=== PATIENT | female | born 1945 | race Two or more races ===

== ENCOUNTER 2017-05-16 09:00 | Emergency (ER) | payer MEDICARE, MEDICAID ==
[~2017-05-16] VITALS: Ht 152.4 cm; Wt 50.8 kg
[~2017-05-16 09:00] MED LIST: ASPI81TA2 PO; CLOP75TA2 PO; METF500T4 PO; PIOG30TA2 PO; SIMV40TA5 PO; SITA50TA PO
[2017-05-16 09:09] VITALS: BP 134/73
[2017-05-16] MEDS ORDERED: ACETAMINOPHEN 325 MG TABLET ONE (09:23)
[2017-05-16] MEDS ORDERED: ACETAMINOPHEN 325 MG TABLET PO ONE (09:30)
== END 2017-05-16 10:29 | disposition home or self-care (01) ==
LOC: ER 09:04
DX: S93.601A Unspecified sprain of right foot, initial encounter (principal); E11.9 Type 2 diabetes mellitus without complications; I10 Essential (primary) hypertension; M81.0 Age-related osteoporosis without current pathological fracture; Z79.82 Long term (current) use of aspirin; Z88.0 Allergy status to penicillin; S93.401A Sprain of unspecified ligament of right ankle, initial encounter; X58.XXXA Exposure to other specified factors, initial encounter; Y92.89 Other specified places as the place of occurrence of the external cause; Y93.89 Activity, other specified; Y99.8 Other external cause status
CPT/HCPCS: 73610; 73630; 99284; A4606; Z7610

== ENCOUNTER 2017-10-17 22:42 | Inpatient (IN) | payer MEDICARE, MEDICAID ==
[~2017-10-17] VITALS: Ht 154.9 cm; Wt 72.6 kg
[~2017-10-17 22:42] MED LIST changes: +ASPI-1169 PO; -ASPI81TA2 PO; +CLOP75TA15 PO; -CLOP75TA2 PO; +PIOG30TA10 PO; -PIOG30TA2 PO
--- NOTE | 2017-10-17 22:45 | NUR ---
MS BLANDON NOTES NEW SALINE LOCK PLACE ON LEFT FOREARM #22.IVF STARTED. Addendum: 10/18/17 at 0255 by PEREZ POWELL RN ABOVE SALINE LOCK PLACE AT 0045 10/18/17
--- NOTE | 2017-10-17 22:55 | NUR ---
TO BED 2 A 72 YO FEMALE PATIENT BIBSELF C/O RT ARM CELLULITIS X2 DAYS". VSS. NAD NOTED. NONDIPAHORETIC. AMBULATORY. PLACED ON MONITOR. COMFORT MEASURES RENDERED.
[2017-10-17] MEDS ORDERED: VANCOMYCIN 1 GM in IV D5W 250 ML IV ONE (23:00)
--- NOTE | 2017-10-17 23:00 | NUR ---
MS RN NOTES STARTED ON 09/17 NS AT 75ML/HR RATE VIA IV PUMP THRU LEFT FOREARM.
--- NOTE | 2017-10-17 23:03 | NUR ---
Dr Epstein at bedside to evaluate patient.
[2017-10-17] MEDS ORDERED: VANCOMYCIN 1 GM VIAL ONE (23:04)
--- NOTE | 2017-10-17 23:10 | NUR ---
started a saline lock on the lac g18, blood drawn and sent to lab.
[2017-10-17] MEDS ORDERED: LISI-607 PO (23:34)
[2017-10-17] MEDS ORDERED: INSU300I SQ (23:34)
[2017-10-17] MEDS ORDERED: FURO20TA4 PO (23:34)
[2017-10-17] MEDS ORDERED: CLIN300C11 PO (23:34)
[2017-10-17] MEDS ORDERED: SULF1TAB48 PO (23:34)
[2017-10-17] MEDS ORDERED: ACAR50TA3 PO (23:34)
[2017-10-17 23:38] LABS: BASOPHILS % (AUTO) 0.2 % (0.0-2.0); EOSINOPHILS % (AUTO) 0.4 % (0.0-6.0); HEMATOCRIT 34 % (33-45); HEMOGLOBIN 11.9 g/dL (11.5-14.8); LYMPHOCYTES # (AUTO) 1.7 /CMM (0.8-4.8); LYMPHOCYTES % (AUTO) 21.1 % (20.0-44.0); MEAN CORPUSCULAR HEMOGLOBIN 31 PG (26.0-33.0); MEAN CORPUSCULAR HGB CONC 35 g/dl (31.0-36.0); MEAN CORPUSCULAR VOLUME 91 fL (82-100); MONOCYTES # (AUTO) 0.7 /CMM (0.1-1.30); MONOCYTES % (AUTO) 8.8 % (2.0-12.0); NEUTROPHILS # (AUTO) 5.7 /CMM (1.8-8.9); NEUTROPHILS % (AUTO) 69.5 % (43.0-81.0); PLATELET COUNT (AUTO) 226 /CMM (150-450); RDW COEFFICIENT OF VARIATION 12.4 (11.5-15.0); RED BLOOD CELL COUNT(AUTO) 3.78 MIL/uL (4.0-5.2); WHITE BLOOD COUNT (AUTO) 8.2 K/uL (4.3-11.0)
--- NOTE | 2017-10-17 23:41 | NUR ---
REPORT GIVEN TO PEREZ BLANDON FOR ADMISSION AND VICENTA.
[2017-10-17] MEDS ORDERED: IV 1/2NS 1000 ML 1,000 ML IV PRN ×2 (23:45→23:46)
[2017-10-17 23:48] LABS: CALCIUM, SERUM 9.9 mg/dL (8.5-10.1); CREATININE 0.7 mg/dL (0.6-1.3); POTASSIUM 3.7 mmol/L (3.5-5.1)
[2017-10-17 23:51] LABS: INR 0.91 (0.87-1.13)
--- NOTE | 2017-10-17 23:57 | NUR ---
TRANSFERRED PATIENT TO [facility] FLOOR, NO INCIDENT NOTED.
[2017-10-18 00:15] VITALS: BP 129/69
[2017-10-18] MEDS ORDERED: Z GUARD REMEDY 2 OZ OINT TP PRN ×2 (00:15)
[2017-10-18] MEDS ORDERED: MAGNESIUM HYDROXIDE 30 ML UDC PO PRN ×2 (00:15)
[2017-10-18] MEDS ORDERED: ZOLPIDEM TARTRATE 5 MG TABLET PO PRN ×2 (00:15)
[2017-10-18] MEDS ORDERED: HYDROCODONE/APAP 5/325MG 1 EACH TABLET PO PRN ×2 (00:15)
[2017-10-18] MEDS ORDERED: ACETAMINOPHEN 325 MG TABLET PO PRN ×2 (00:15)
[2017-10-18] MEDS ORDERED: ONDANSETRON HCL/PF 4 MG/2 ML VIAL IVP PRN ×2 (00:15)
[2017-10-18] MEDS ORDERED: MAG HYDROX/AL HYDROX/SIMETH 30 ML UDC PO PRN ×2 (00:15)
--- NOTE | 2017-10-18 00:15 | NUR ---
MS RN NOTES ADMITTED FROM ER PER WHEELCHAIR THIS 72.Y.O. FEMALE ACCOMPANIED BY DAUGHTER,ALERT,ORIENTED X4,SPEAK KOREAN,WITH LITTLE [place]UX[place]GISH.CHIEF COMPLAINTS OF REDNESS AND SWELLING OF RIGHT ARM X 2DAYS.PAIN BEARABLE AT THE MOMENT.SALINE LOCK LEFT AC INFILTRATED.WITH SLIGHT REDNESS ON SITE.WITH KNOWN HISTORY OF RIGHT BREAST CANCER,WITH MASTECTOMY.AMBULATE WITH STEADY GAIT.CALL LIGHT IN REACH,NEEDS ANTICIPATED.
--- NOTE | 2017-10-18 02:00 | NUR ---
MS RN NOTES RIGHT ARM ELEVATED ON 2 PILLOWS ORDERED
--- NOTE | 2017-10-18 06:45 | NUR ---
MS RN NOTES FAIRLY RESTED,IVF INFUSING,RIGHT ARM KEPT ELEVATED ON 2 PILLOWS.DENIES PAIN.CALL LIGHT IN REACH,NEEDS ANTICIPATED.WILL ENDORSE TO DAY NURSE FOR VICENTA.
[2017-10-18 08:00] VITALS: BP 119/61
[2017-10-18] MEDS: METFORMIN 500 MG TABLET PO SCH ×2 (08:32→17:32)
[2017-10-18] MEDS: ASPIRIN 81 MG TAB.CHEW PO SCH (08:33)
[2017-10-18] MEDS: CLOPIDOGREL BISULFATE 75 MG TABLET PO SCH (08:33)
[2017-10-18] MEDS: FUROSEMIDE 20 MG TABLET PO SCH (08:33)
[2017-10-18] MEDS: LISINOPRIL (5MG) 5 MG TABLET PO SCH (08:33)
[2017-10-18] MEDS ORDERED: LISINOPRIL (5MG) 5 MG TABLET PO SCH (09:00)
[2017-10-18] MEDS ORDERED: METFORMIN 500 MG TABLET PO SCH (09:00)
[2017-10-18] MEDS ORDERED: CLOPIDOGREL BISULFATE 75 MG TABLET PO SCH (09:00)
[2017-10-18] MEDS ORDERED: ACARBOSE 50 MG TABLET PO SCH (09:00)
[2017-10-18] MEDS: INSULIN GLARGINE, 100 UNIT/ML CARTRIDGE SQ SCH (09:00)
[2017-10-18] MEDS ORDERED: ASPIRIN 81 MG TAB.CHEW PO SCH (09:00)
[2017-10-18] MEDS ORDERED: FUROSEMIDE 20 MG TABLET PO SCH (09:00)
[2017-10-18] MEDS: ACARBOSE 50 MG TABLET PO SCH ×3 (09:00→17:00)
[2017-10-18] MEDS ORDERED: DEXTROSE 50%-WATER 50 ML DISP.SYRIN IV PRN (12:30)
[2017-10-18] MEDS: VANCOMYCIN 0.75 GM in IV D5W 250 ML IV SCH (12:41)
[2017-10-18] MEDS ORDERED: FEE PK DOSING 1 MIN EA MC ONE (13:46)
[2017-10-18 16:00] VITALS: BP 135/71
[2017-10-18] MEDS: BLOOD SUGAR DIAGNOSTIC 1 EACH STRIP IN SCH ×2 (17:30→22:45)
[2017-10-18] MEDS: diphenhydrAMINE HCL 50 MG/ML VIAL IV PRN (17:34)
[2017-10-18] MEDS: INSULIN REGULAR, HUMAN 100 UNIT/ML 3 ML VIAL SQ PRN (17:35)
--- NOTE | 2017-10-18 18:13 | NUR ---
M/S RN - Notes Patient A/O x 4, denies pain, no apparent distress seen, remain afebrile, right arm redness/swelling improved. Patient on Vancomycin IV and advised to continue to elevate right arm on pillows. Patient ambulatory and independent with ADLs. All needs attended and met. Anticipate discharge home tomorrow if she continues to improve.
--- NOTE | 2017-10-18 19:40 | NUR ---
MSRN SLEEPING APPEARS COMFORTABLE. NO NEEDS FOR NOW.
[2017-10-18 20:00] VITALS: BP 131/70
--- NOTE | 2017-10-18 20:40 | NUR ---
MSRN V/S STABLE, ALL NEEDS ATTENDED.
[2017-10-18] MEDS ORDERED: SIMVASTATIN 40 MG TABLET PO SCH (22:00)
[2017-10-18] MEDS: SIMVASTATIN 40 MG TABLET PO SCH (22:45)
--- NOTE | 2017-10-18 22:50 | NUR ---
msrn bs 224 refused insulin coverage. states takes po metformin and insulin before breakfast. other due neds for tonight administered.
[2017-10-19] MEDS: VANCOMYCIN 0.75 GM in IV D5W 250 ML IV SCH ×2 (02:04→13:22)
--- NOTE | 2017-10-19 02:06 | NUR ---
MSRN ASSISTED TO RESTROOM VOIDED FREELY. VANCO IV RESUMED.
[2017-10-19] MEDS: diphenhydrAMINE HCL 50 MG/ML VIAL IV PRN (05:13)
--- NOTE | 2017-10-19 05:16 | NUR ---
MSRN RIGHT ARM ITCHING, BENADRYL 25 MG IVP ADMINISTERED ORDERED. BEDREST INSTRUCTED. WENT BACK TO SLEEP.
--- NOTE | 2017-10-19 06:11 | NUR ---
MSRN PATIENT VERBALIZES PAIN ON RIGHT UPPER CHEST WALL. SITE TENDER TO TOUCH, SLIGHTLY SWOLLEN. STATED HAD MASTECTOMY HISTORY. OFFERED PAIN MED, DECLINED, WANTED TO HAVE MD TO CHECK SITE BEFORE TAKING ANY TYPE OF PAIN MED. COMPLAINTS TRANSLATED IN [facility] BY [employer].
[2017-10-19 06:57] LABS: CALCIUM, SERUM 8.4 mg/dL (8.5-10.1); CREATININE 0.6 mg/dL (0.6-1.3); POTASSIUM 3.7 mmol/L (3.5-5.1)
--- NOTE | 2017-10-19 07:00 | NUR ---
MSRN ENDORSED TO INCOMING RN
[2017-10-19] MEDS: BLOOD SUGAR DIAGNOSTIC 1 EACH STRIP IN SCH ×4 (07:26→21:03)
[2017-10-19] MEDS: INSULIN REGULAR, HUMAN 100 UNIT/ML 3 ML VIAL SQ PRN ×4 (07:28→21:08)
--- NOTE | 2017-10-19 07:34 | NUR ---
MS RN OPENING NOTES PATIENT RECEIVED AWAKE IN BED AND TALKING TO SOMEBODY ON HER CELLPHONE. A/O X4. SAME ABLE TO COMMUNICATE VERBALLY IN [place], DENIES PAIN OR DISCOMFORTS AT THIS TIME. RIGHT ARM ELEVATED WITH PILLOW. ON ROOM AIR, BREATHING EVEN AND UNLABORED. IV ACCESS ON LEFT WRIST G#22 INTACT AND PATENT, EASILY TO FLUSH. BED IN LOW AND LOCKED POSITION WITH SIDE-RAILS UP X2. CALL LIGHT WITHIN REACH. WILL CONTINUE TO MONITOR.
[2017-10-19 08:00] VITALS: BP 141/58
[2017-10-19] MEDS: METFORMIN 500 MG TABLET PO SCH ×2 (08:14→17:11)
[2017-10-19] MEDS: ASPIRIN 81 MG TAB.CHEW PO SCH (08:14)
[2017-10-19] MEDS: FUROSEMIDE 20 MG TABLET PO SCH (08:15)
[2017-10-19] MEDS: ACARBOSE 50 MG TABLET PO SCH ×3 (08:16→17:11)
[2017-10-19] MEDS: LISINOPRIL (5MG) 5 MG TABLET PO SCH (08:16)
[2017-10-19] MEDS: CLOPIDOGREL BISULFATE 75 MG TABLET PO SCH (08:18)
[2017-10-19] MEDS: INSULIN GLARGINE, 100 UNIT/ML CARTRIDGE SQ SCH (08:19)
--- NOTE | 2017-10-19 11:27 | NUR ---
RN NOTES INFORMED DR LAGUNAS THAT PATIENT'S RIGHT UPPER CHEST WALL IS TENDER TO TOUCH AND SLIGHTLY SWOLLEN. DR LAGUNAS ASSESSED AND EVALUATED PT WITH ORDER TO APPLY COLD COMPRESS TO SITE NEEDED. WILL CONTINUE TO MONITOR.
[2017-10-19 16:00] VITALS: BP 118/61
--- NOTE | 2017-10-19 16:14 | NUR ---
RN NOTES PT C/O OF MILD PAIN ON RIGHT UPPER CHEST WALL, PRN NORCO 5/325MG OR TYLENOL 650MG OFFERED BUT REFUSED, PT PREFERRED TO HAVE COLD COMPRESS APPLY. COLD COMPRESS APPLIED AND VERBALIZED RELIEF. WILL CONTINUE TO MONITOR.
--- NOTE | 2017-10-19 18:21 | NUR ---
MS RN CLOSING NOTES PATIENT SITTING ON CHAIR AT BEDSIDE WATCHING TV. A/O X4. ABLE TO COMMUNICATE VERBALLY IN [place]. REDNESS AND SWELLING TO RIGHT ARM PERSIST, REMINDED PT TO ELEVATE WITH PILLOW WHEN IN BED. ON ROOM AIR, BREATHING EVEN AND UNLABORED, NO ACUTE RESPIRATORY DISTRESS NOTED. IV ACCESS ON LEFT WRIST G#22 INTACT AND PATENT, EASILY TO FLUSH. KEPT BED IN LOW AND LOCKED POSITION WITH SIDE-RAILS UP X2. CALL LIGHT WITHIN REACH. ALL NEEDS AND CARE ATTENDED WELL. WILL ENDORSED TO OUT AND OUT CIGAR MAKER HAND NURSE FOR VICENTA. .
--- NOTE | 2017-10-19 19:00 | NUR ---
MS RN NOTE: PATIENT RESTING IN BED, A/OX 4, IN STABLE, NO ACUTE DISTRESS NOTED. BREATHING EVEN AND UNLABORED, NO SOB NOTED. BED LOCKED AND IN LOWEST POSITION, CALL LIGHT IN REACH. WILL CONTINUE TO MONITOR.
[2017-10-19 20:00] VITALS: BP 126/72
[2017-10-19] MEDS: SIMVASTATIN 40 MG TABLET PO SCH (21:03)
[2017-10-20] MEDS: VANCOMYCIN 1 GM in IV D5W 250 ML IV SCH ×2 (00:59→13:03)
[2017-10-20] MEDS: BLOOD SUGAR DIAGNOSTIC 1 EACH STRIP IN SCH ×4 (05:30→21:08)
[2017-10-20] MEDS: INSULIN REGULAR, HUMAN 100 UNIT/ML 3 ML VIAL SQ PRN ×4 (05:35→21:13)
--- NOTE | 2017-10-20 06:28 | NUR ---
MS RN CLOSING NOTES PT COMFORTABLY ASLEEP AND EASILY AWAKEN, 98% R.A IN STABLE CONDITION. NOT IN FORM OF DISTRESS, RESPIRATION EVEN AND UNLABORED. KEPT CLEAN AND DRY AND COMFORTABLE, ALL NURSING CARE RENDERED. NEEDS ATTENDED AND ANTICIPATED, FREQUENT VISUAL CHECK DONE FOR SAFETY EVERY 2 HOURS. NO COMPLAINS OF PAIN. ON LOW BED AT ALL TIMES TO ENSURE SAFETY. SAFE HAZARD FREE ENVIRONMENT PROVIDED. CALL LIGHT WITHIN EASY TO REACH. WILL ENDORSE NEXT SHIFT CONTINUITY OF CARE
[2017-10-20 06:37] LABS: CALCIUM, SERUM 8.5 mg/dL (8.5-10.1); CREATININE 0.5 mg/dL (0.6-1.3); POTASSIUM 3.8 mmol/L (3.5-5.1)
--- NOTE | 2017-10-20 07:31 | NUR ---
MS/RN Patient received Patient received from [employer]. A/O X4, all needs attended, right arm remains elevated on pillows due to cellulitis. Call light within reach, will continue to monitor and ensure safety.
[2017-10-20 08:00] VITALS: BP 101/54
[2017-10-20 08:25] VITALS: BP 101/54
[2017-10-20] MEDS: ASPIRIN 81 MG TAB.CHEW PO SCH (08:43)
[2017-10-20] MEDS: CLOPIDOGREL BISULFATE 75 MG TABLET PO SCH (08:43)
[2017-10-20] MEDS: METFORMIN 500 MG TABLET PO SCH ×2 (08:43→17:39)
[2017-10-20] MEDS: ACARBOSE 50 MG TABLET PO SCH ×3 (08:44→17:39)
[2017-10-20] MEDS: FUROSEMIDE 20 MG TABLET PO SCH (08:44)
[2017-10-20] MEDS: LISINOPRIL (5MG) 5 MG TABLET PO SCH (08:44)
[2017-10-20] MEDS: INSULIN GLARGINE, 100 UNIT/ML CARTRIDGE SQ SCH (08:45)
--- NOTE | 2017-10-20 09:05 | NUR ---
MS/RN Pain Complaining of pain to right arm and right chest due to cyst. Lewis one tablet given, will monitor effectiveness.
--- NOTE | 2017-10-20 10:17 | NUR ---
MS/RN S/B Dr Grace Seen by Dr Grace - US guided fine needle aspiration of right sided breast cyst ordered.
--- NOTE | 2017-10-20 11:08 | NUR ---
MS/RN Consents Consent forms signed for aspiration and placed in front of chart.
--- NOTE | 2017-10-20 12:30 | NUR ---
MS/RN Blood sugar Blood sugar at noon 324, eight units regular insulin administered per sliding scale.
--- NOTE | 2017-10-20 13:10 | NUR ---
MS/RN Heplock New heplock inserted to left forearm 22g.
[2017-10-20 16:00] VITALS: BP 118/71
[2017-10-20 16:23] VITALS: BP 118/71
--- NOTE | 2017-10-20 17:00 | NUR ---
MS/RN Blood sugar Blood sugar at 5p 152, insulin coverage given as per sliding scale.
--- NOTE | 2017-10-20 18:19 | NUR ---
MS/RN End note Patient remains in stable condition, vital signs stable, no fever or further signs of infection. Cellulitis to right arm improving. Vancomycin continues to be administered every 12 hours with next level to be drawn at 12p 10/21/17. All needs attended, call light within reach, will continue to monitor and ensure safety.
--- NOTE | 2017-10-20 19:30 | NUR ---
RN NOTE; RECEIVED PT UP IN THE CHAIR. AWAKE AND ALERT. BREATHING EVENLY. NO SOB. NAD .SKIN WARM AND DRY. W/ MILD REDNESS AND SWELLING ON RUE. SKIN REMAINED INTACT. NO C/O PAIN OR DISCOMFORT AT THIS TIME. NEEDS ATTENDED . CALL LIGHT WITHIN REACH. WILL CONT TO MONITOR.
[2017-10-20 20:00] VITALS: BP 102/61
[2017-10-20 20:06] VITALS: BP 102/61
[2017-10-20] MEDS: SIMVASTATIN 40 MG TABLET PO SCH (21:09)
[2017-10-21] MEDS: VANCOMYCIN 1 GM in IV D5W 250 ML IV SCH ×2 (00:38→14:42)
--- NOTE | 2017-10-21 06:32 | NUR ---
RN NOTE; PT IN BE AWAKE AND ALERT. BREATHING EVENLY. ON ONGOING IV ATB W/ NO COMPLICATIONS. W/ MILD SWELLING AND REDNESS ON THE RUE. NO C/O PAIN OR DISCOMFORT . NEEDS ATTENDED . ASSISTED W/ ADLS. BED LOW LOCKED . CALL LIGHT WITHIN REACH. WILL CONT TO MONITOR AND WILL ENDORSE TO AM SHIFT FOR VICENTA.
[2017-10-21] MEDS: BLOOD SUGAR DIAGNOSTIC 1 EACH STRIP IN SCH ×3 (06:48→17:25)
[2017-10-21] MEDS: INSULIN REGULAR, HUMAN 100 UNIT/ML 3 ML VIAL SQ PRN ×3 (06:49→17:58)
[2017-10-21 06:55] LABS: BASOPHILS % (AUTO) 0.2 % (0.0-2.0); EOSINOPHILS # (AUTO) 0.1 /CMM (0.0-0.7); EOSINOPHILS % (AUTO) 0.8 % (0.0-6.0); HEMATOCRIT 35 % (33-45); HEMOGLOBIN 12.1 g/dL (11.5-14.8); LYMPHOCYTES # (AUTO) 1.5 /CMM (0.8-4.8); LYMPHOCYTES % (AUTO) 22.8 % (20.0-44.0); MEAN CORPUSCULAR HEMOGLOBIN 31 PG (26.0-33.0); MEAN CORPUSCULAR HGB CONC 35 g/dl (31.0-36.0); MEAN CORPUSCULAR VOLUME 90 fL (82-100); MONOCYTES # (AUTO) 0.4 /CMM (0.1-1.30); MONOCYTES % (AUTO) 6.1 % (2.0-12.0); NEUTROPHILS # (AUTO) 4.6 /CMM (1.8-8.9); NEUTROPHILS % (AUTO) 70.1 % (43.0-81.0); PLATELET COUNT (AUTO) 264 /CMM (150-450); RDW COEFFICIENT OF VARIATION 12.7 (11.5-15.0); RED BLOOD CELL COUNT(AUTO) 3.88 MIL/uL (4.0-5.2); WHITE BLOOD COUNT (AUTO) 6.6 K/uL (4.3-11.0)
[2017-10-21 07:28] LABS: CALCIUM, SERUM 8.7 mg/dL (8.5-10.1); CREATININE 0.6 mg/dL (0.6-1.3); MAGNESIUM 1.7 mg/dL (1.8-2.4); PHOSPHORUS 5.9 mg/dL (2.5-4.9); POTASSIUM 3.6 mmol/L (3.5-5.1)
--- NOTE | 2017-10-21 07:28 | NUR ---
RN OPEN NOTES RECEIVED REPORT FROM BLOW PIT HELPER RN. PATIENT IS SITTING IN A CHAIR, GRENADIAN SPEAKER. ALERT AND ORIENTED X3. NO SIGNS AND SYMPTOMS OF DISTRESS. BED IN LOW POSITION, LOCKED AND TWO SIDE RAILS ARE UP FOR SAFETY. WILL CONTINUE TO MONITOR AND ASSESS PATIENT.
[2017-10-21 08:00] VITALS: BP 112/57
[2017-10-21] MEDS: INSULIN GLARGINE, 100 UNIT/ML CARTRIDGE SQ SCH (08:14)
[2017-10-21] MEDS: ACARBOSE 50 MG TABLET PO SCH ×3 (08:16→17:00)
[2017-10-21] MEDS: CLOPIDOGREL BISULFATE 75 MG TABLET PO SCH (08:16)
[2017-10-21] MEDS: ASPIRIN 81 MG TAB.CHEW PO SCH (08:16)
[2017-10-21] MEDS: METFORMIN 500 MG TABLET PO SCH ×2 (08:16→17:07)
[2017-10-21] MEDS: LISINOPRIL (5MG) 5 MG TABLET PO SCH (08:17)
[2017-10-21] MEDS: FUROSEMIDE 20 MG TABLET PO SCH (08:17)
[2017-10-21] MEDS: Magnesium 1GM/D5W 100ML PREMIX 100 ML IV SCH ×2 (12:14→13:24)
[2017-10-21 16:00] VITALS: BP 117/60
--- NOTE | 2017-10-21 18:51 | NUR ---
DIRECTOR OF RELIGIOUS ACTIVITIES NOTES DISCHARGE ORDER RECEIVED AND CARRIED OUT. PATIENT IS LEAVING IN A STABLE CONDITION NO SIGNS AND SYMPTOMS OF DISTRESS OR PAIN. ALL DISCHARGE INSTRUCTIONS EXPLAINED TO PATIENT AND PATIENT VERBALIZED UNDERSTANDING. ALL PERSONAL BELONGING WITH PATIENT AT TIME OF DISCHARGE. BOTH FORMS SIGNED AND PLACED IN THE CHART. NO NEW CONCERNS IDENTIFIED UPON DISCHARGE. PICTURES WERE TAKEN LAST NIGHT AND PLACED IN THE CHART. PATIENT WAS PICKED UP VIA A PRIVATE CAR BY HER FRIEND.
== END 2017-10-21 18:50 | disposition home or self-care (01) | DRG 603 ==
LOC: ER 22:45 → MEDSG2 10-18 00:47
PROVIDERS: ADMIT Internal Medicine; ATTEND Internal Medicine
DX: L03.113 Cellulitis of right upper limb (principal); E11.9 Type 2 diabetes mellitus without complications; E78.5 Hyperlipidemia, unspecified; I10 Essential (primary) hypertension; Z85.3 Personal history of malignant neoplasm of breast; M81.0 Age-related osteoporosis without current pathological fracture; Z79.84 Long term (current) use of oral hypoglycemic drugs; L02.413 Cutaneous abscess of right upper limb; Z90.11 Acquired absence of right breast and nipple; Z88.0 Allergy status to penicillin
CPT/HCPCS: 36415; 76882; 80048-TC; 80202-TC; 82962-TC; 83605-TC; 83735-TC; 84100-TC; 85025-TC; 85730-TC; 87040-TC; 87081-TC; A6402; J1200; J1815; J3370; J3475; J7030; J7060

== ENCOUNTER 2019-04-02 13:12 | Emergency (ER) | payer MEDICARE, MEDICAID ==
[~2019-04-02] VITALS: Ht 152.4 cm; Wt 62.6 kg
[~2019-04-02 13:12] MED LIST changes: +ACAR50TA3 PO; +CLIN300C11 PO; +FURO20TA4 PO; +INSU300I SQ; +LISI-607 PO; +METF-440 PO; -METF500T4 PO; -PIOG30TA10 PO; -SITA50TA PO
[2019-04-02 13:19] VITALS: BP 151/65
[2019-04-02] MEDS ORDERED: DIPHENHYDRAMINE HCL 12.5 MG/5 ML UDC PO ONE (14:00)
[2019-04-02] MEDS ORDERED: FAMOTIDINE (20 MG) 20 MG TABLET PO ONE (14:00)
[2019-04-02] MEDS ORDERED: predniSONE 20 MG TABLET PO ONE (14:00)
[2019-04-02] MEDS ORDERED: diphenhydrAMINE HCL 25 MG CAPSULE ONE (14:06)
[2019-04-02] MEDS ORDERED: predniSONE 20 MG TABLET ONE (14:07)
[2019-04-02] MEDS ORDERED: FAMOTIDINE (20 MG) 20 MG TABLET ONE (14:07)
[2019-04-02] MEDS ORDERED: CLINDAMYCIN 300 MG in IV NS 0.9% 50 ML IV STA (14:51)
== END 2019-04-02 15:19 | disposition home or self-care (01) ==
LOC: ER 13:18
DX: L03.113 Cellulitis of right upper limb (principal); I10 Essential (primary) hypertension; E11.9 Type 2 diabetes mellitus without complications; M81.0 Age-related osteoporosis without current pathological fracture; M19.90 Unspecified osteoarthritis, unspecified site; Z85.3 Personal history of malignant neoplasm of breast; Z90.11 Acquired absence of right breast and nipple; Z88.0 Allergy status to penicillin; Z79.899 Other long term (current) drug therapy; Z79.4 Long term (current) use of insulin; Z79.84 Long term (current) use of oral hypoglycemic drugs; Z79.82 Long term (current) use of aspirin
CPT/HCPCS: 99284; A4216; J3490; J7512; Q0163 ×2